=== PATIENT | male | born 1975 | race Asian ===

== ENCOUNTER 2016-10-25 23:21 | Emergency (ER) | payer SELFPAY ==
[2016-10-26] MEDS ORDERED: IBUPROFEN 600 MG TABLET ONE (00:52)
[2016-10-26] MEDS ORDERED: HYDROCODONE/ACETAMINOPHEN 5/325MG TABLET ONE (01:51)
--- NOTE | 2016-10-26 07:37 | RAD ---
Exam: Three-view right finger COMPARISON: None INDICATION: Smashed right index finger with sledgehammer 2 days ago, persistent pain. FINDINGS: A PA view of the hand and oblique and lateral views of the right index finger were obtained. Diffuse soft tissue prominence is seen about all fingers but slightly more pronounced within the second and third fingers. Some radiopaque debris is noted along the skin surface. No definite foreign body is seen within the subcutaneous tissues. Alignment is maintained. No fracture is identified. IMPRESSION: No acute osseous abnormality within the right index finger.
== END 2016-10-26 03:03 | disposition home or self-care (01) ==
LOC: ED 23:21
DX: S60.021A Contusion of right index finger without damage to nail, initial encounter (principal); X58.XXXA Exposure to other specified factors, initial encounter; Y92.9 Unspecified place or not applicable
CPT/HCPCS: 73140; 99283 ×2; A9270 ×2

== ENCOUNTER 2016-10-29 20:04 | Emergency (ER) | payer SELFPAY ==
[2016-10-29] MEDS ORDERED: CEFTRIAXONE 1 GRAM DUPLEX 50 ML IV ONE (22:25)
[2016-10-29] MEDS ORDERED: VANCOMYCIN HCL 1.25 G in SODIUM CHLORIDE 0.9% 250 ML IV ONE (22:45)
[2016-10-30] MEDS ORDERED: OXYCODONE HCL 5 MG TABLET ONE (01:01)
[2016-10-30] MEDS ORDERED: IBUPROFEN 600 MG TABLET ONE (01:01)
== END 2016-10-30 01:07 | disposition home or self-care (01) ==
LOC: ED 20:04
DX: L02.511 Cutaneous abscess of right hand (principal)
CPT/HCPCS: 82565; 87070; 87186; 36415; 96375; 99283 ×2; 96374; A9270 ×2; J7050; J3370; J0696

== ENCOUNTER 2016-12-18 10:19 | Emergency (ER) | payer SELFPAY | END 2016-12-18 11:33 | disposition home or self-care (01) | LOC: ED 10:19 | DX: S51.811A Laceration without foreign body of right forearm, initial encounter (principal); W27.8XXA Contact with other nonpowered hand tool, initial encounter; I10 Essential (primary) hypertension; K76.9 Liver disease, unspecified; E66.9 Obesity, unspecified; E78.5 Hyperlipidemia, unspecified; E11.9 Type 2 diabetes mellitus without complications; F17.210 Nicotine dependence, cigarettes, uncomplicated; Z79.899 Other long term (current) drug therapy ==

== ENCOUNTER 2017-02-06 05:36 | Emergency (ER) | payer SELFPAY ==
--- NOTE | 2017-02-06 07:52 | RAD ---
SOFT TISSUE NECK HISTORY: Patient possibly swallowed glass. Foreign body sensation in upper throat. COMPARISONS: None FINDINGS: AP and lateral soft tissue neck views are obtained. Epiglottis is normal. The aryepiglottic folds are unremarkable. No radiopaque foreign body. Radiolucent foreign body cannot be excluded on the basis of this exam. Osseous structures are intact. Degenerative changes of the cervical spine. IMPRESSION: No radiopaque foreign body. Radiolucent foreign body cannot excluded basis of this exam, and if there is clinical concern for this CT or direct visualization would be recommended.
== END 2017-02-06 06:20 | disposition home or self-care (01) ==
LOC: ED 05:36
DX: R09.89 Other specified symptoms and signs involving the circulatory and respiratory systems (principal); I10 Essential (primary) hypertension; E78.5 Hyperlipidemia, unspecified; E11.9 Type 2 diabetes mellitus without complications; E66.9 Obesity, unspecified; F17.210 Nicotine dependence, cigarettes, uncomplicated